=== PATIENT | female | born 2000 | race African-American/Black ===

== ENCOUNTER 2024-06-29 14:44 | Emergency (ER) | payer MEDICAID ==
[~2024-06-29] VITALS: Ht 152.4 cm; Wt 67.3 kg
[2024-06-29 14:48] VITALS: BP 97/56; PULSE 80; RESP 14; TEMP 98.8; O2SAT 100
[2024-06-29 16:16] LABS: APPEARANCE,URINE CLEAR (CLEAR); BILIRUBIN,URINE NEGATIVE (NEGATIVE); COLOR,URINE LIGHT YELLOW (YELLOW); GLUCOSE, URINE (UA) NEGATIVE (NEGATIVE); LEUKOCYTE ESTERASE ,URINE NEGATIVE (NEGATIVE); NITRATE,URINE NEGATIVE (NEGATIVE); OCCULT BLOOD,URINE NEGATIVE (NEGATIVE); PH,URINE 6.5 (5.0-8.0); PROTEIN,URINE TRACE mg/dL (NEGATIVE); SPECIFIC GRAVITIY, URINE 1.027 (1.003-1.030); UROBILINOGEN,URINE <=1.0 mg/dL (<=1.0)
[2024-06-29 16:32] LABS: BACTERIA,URINE None Seen /HPF (None Seen); RBC,URINE 0-2 /HPF (0-2); WBC,URINE 0-2 /HPF (0-5)
[2024-06-29] MEDS ORDERED: METR500 PO (17:21)
== END 2024-06-29 17:36 | disposition home or self-care (01) ==
LOC: EMS 14:44
DX: N76.0 Acute vaginitis (principal)
CPT/HCPCS: 81001; 84703; 87210; 99283